=== PATIENT | female | born 1940 | race Caucasian/White ===

== ENCOUNTER 2024-10-10 19:43 | Outpatient (REF) | payer MEDICARE, SELFPAY ==
--- OUTSIDE RECORDS SUMMARY | 2021-03-27 20:00 | XMS_ITS | Continuity of Care Document ---
Author Organization [facility] MOLINA Address [address] [place] [id number] Phone Care Team Providers Care Outreach Liaison Name Role Phone Unavailable Unavailable Unavailable Allergies, Adverse Reactions, Alerts Substance Reaction Status Criticality No Known Allergies Active No Inform ation Medications Medication Instructions Dosage Effective Dates (start - stop) Status Comments ASPIRIN (unknown strength) take 2 tablet by oral route every 6 hours as needed Not Available - Active CHANTIX (unknown strength) take 1 tablet by oral route 2 times every day for 3 days with glass of water after meals Not Available - Active Procedures Procedure Date NO SHOW Refraction Offic/outpt E&m Estab Minor 10 21 Offic/outpt E&m Estab Minor 21 Refraction NO SHOW YAG Cap Discission 2nd Cataract; Laser O CPTR OPHTH DX IMG POST SEGMT CMPTR OPHTH IMG OPTIC NERVE Offic/outpt E&m New Mod-hi 45 1 Offic/outpt E&m New Mod-hi 45 1 CPTR OPHTH DX IMG POST SEGMT CMPTR OPHTH IMG OPTIC NERVE Macular Shield Multi Advance Directives Directive Yes / No Effective Date File Name No Information Encounters Encounter Description Practice Location Reason(s) For Visit Diagnoses Date Provider Providers Copied on Encounter [facility], [address] [place] [address], [id number], tel:[phone] [facility] [address] No Information Mar-2 2 No Information Offic/outpt E&m Estab Minor 10 Luther MOLINA, [address] [place] [address] [place], [place], [id number], tel:[phone] [facility] [address] tech only MR (chief complaint) Other chronic allergic conjunctiviti sPresbyopia Oct-0 1 No Information Luther MOLINA, [address] [place] [address] [place], [id number], [place] tel:[phone] [facility] [address] No Information Nov- 1 No Information Luther MOLINA, [address] [place] [address] [facility], [place], [place], [id number], tel:[phone] [facility] Jaun MOLINA Yag cap evaluation (chief complaint) Other secondary cataract, bilateralBila teral nonexudative age-related macular degeneration, intermediate dry stage Nov-0 1 Mariajose Sims. [address] [place] [address], [id number], [place]. tel:[phone] Offic/outpt E&m New Mod-hi 45 Luther MOLINA, [address] [place] [address] [place], [id number], [place] tel:[phone] [facility] Jaun MOLINA blurry vision (chief complaint) Other secondary cataract, bilateralBila teral nonexudative age-related macular degeneration, intermediate dry stage 1 No Information Referring Provider: [facility], [address] [place], [address]. tel:[phone] [facility] Jaun MOLINA, [address] [place] [address] [place], [id number], [place] tel:[phone] [facility] No Information 1 X Y. [address] [place] [address], [id number], . tel:[phone] Referring Provider: [facility], [address] [facility], [place], [address]. tel:[phone] Family History Family Member Type Diagnosis Age At Onset No Information Payers Payer name Insurance type Covered alliance party ID Authoriza tirj(s) [facility] Dual Comp lencho [id number] [facility]ly [facility] [id number] Social History Type Description Quantity Date Captured Comments Sex Female Smoking Status No Information Chief Complaint And Reason For Visit No Information Reason For Referral Reason For Referral No Information History Of Present Illness Encounter Date Complaint History Of Prese nt Illness tech only MR The 80 year old female presents for evaluation of tech only MR in the right eye and left eye. Patient is here for a tech only MR. Patient notes she needs new glasses. Patient wanted to see the doctor because she has fluid coming out of her eyes since her last visit. 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 Wilson for a Yag cap evaluation in the right eye and left eye. Patient reports having visual blur. Currently taking AREDS 2 formula vitamins. blurry vision The 80 year old female presents for evaluation of blurry vision in the right eye and left eye. It occurs daily. The onset was gradual. The symptom is constant. The condition is mild. The condition is described as blurring. In addition, the condition is associated with daily activity and chores. Patient states that she has a hard time seeing things in the distance and up close. She states that she was ref over for annual exam. Functional Status Date Functional Assessmen t No Information Instructions Date Instruction Additional Infor mation RTC 03/2021 as sched with MANAV Rel ated to Other chronic allergic conjunctivitis Impression/Plan Related to Other chronic allergic conjunctivitis Impression/Plan Related to Presb yopia Impression/Plan Related to Other secondary cataract, bilateral Impression/Plan Related to Bilat eral nonexudative age-related macular degeneration, intermediate dry stage RTC: Related to Other secondary cataract, bilateral Impression/Plan Related to Other secondary cataract, bilateral Impression/Plan Related to Bilat eral nonexudative age-related macular degeneration, early dry stage Impression/Plan Related to Bilat eral nonexudative age-related macular degeneration, intermediate dry stage Assessments Type Assessment Date No Information Patient Care Teams Name Effective Dates (start - stop) Status Members No Information
--- OUTSIDE RECORDS SUMMARY | 2024-10-10 19:49 | XMS_ITS | Clinical Summary ---
Author Organization [facility] Address [facility] [place] [address] Care Team Providers Care Watermelon Inspector Name Role Phone Unavailable Primary Care Provider Unavailabl e Encounters Date Type Department Care Team Description 09/19/2024 Progress Note [facility] Detention [address] [place] [address] Talita Keenan MD from Last 3 Months Social History Tobacco Use Types Packs/Day Years Used Date Smoking Tobacco: Never Assessed Comments Unknown Sex and Gender Information Value Date Recorded Sex Assigned at Not on file Legal Sex Female 2:19 PM EDT Gender Identity Not on file Sexual Orientation Not on file Plan of Treatment Not on file Insurance MEDICARE
--- OUTSIDE RECORDS SUMMARY | 2024-10-10 19:50 | XMS_ITS | Clinical Summary ---
Author Organization [facility] Address [address], [address] [place] [address] Care Team Providers Care Arc Cutter Plasma Arc Name Role Phone Connie Restrepo SAMPLE CASE PORTER - CHEMICAL RESEARCH WORKER Primary Care P rovider Allergies Active Allergy Reactions Criticality Noted Date Comments Environmental/Season al Other (See Comments) 07/29/2024 Sneezing,watery eyes Medications albuterol (PROVENTIL) (2.5 MG/3ML) 0.083% nebulizer solution Take 3 mLs by nebulization every 6 hours as needed for Wheezing 120 each 025 Active Additional Information Patient taking differently:2.5 mg NebulizationEVERY 4 HOURS PRN, Wheezing, Shortness of Breath, Reported on 09/12/2024 guaiFENesin (MUCINEX) 600 MG extended release tablet Take 2 tablets by mouth 2 times daily 360 tablet 025 2024 Active Additional Information Patient taking differently:1,200 mg Oral2 TIMES DAILY PRN, Congestion, Reported on 09/12/2024 ipratropium 0.5 mg-albuterol 2.5 mg (DUONEB) 0.5-2.5 (3) MG/3ML SOLN nebulizer solution Inhale 3 mLs into the lungs every 6 hours as needed for Shortness of Breath 360 mL 025 Active levothyroxine (SYNTHROID) 88 MCG tablet Take 1 tablet by mouth Daily 90 tablet 025 2024 Active metoprolol tartrate (LOPRESSOR) 25 MG tablet Take 0.5 tablets by mouth 2 times daily 90 tablet 025 2024 Active Additional Information Patient taking differently:12.5 mg OralDAILY, Reported on 09/12/2024 mirtazapine (REMERON) 7.5 MG tablet Take 1 tablet by mouth nightly 90 tablet Active traZODone (DESYREL) 50 MG tablet Take 1 tablet by mouth nightly as needed for Sleep 90 tablet Active folic acid (FOLVITE) 1 MG tablet Take 1 tablet by mouth daily Active LORazepam (ATIVAN) 0.5 MG tablet Take 0.5 tablets by mouth every 6 hours as needed for Anxiety (restlessness). Active Albuterol-Cypress esonide (AIRSUPRA) 90-80 MCG/ACT AERO Inhale 2 puffs into the lungs every 4 hours as needed (SOB/wheezing) Active polyethylene glycol (MIRALAX) 17 g PACK packet Take 17 g by mouth daily Active OXYGEN Inhale 4 L/min into the lungs continuous Active sennosides-do cusate sodium (SENOKOT-S) 8.6-50 MG tablet Take 2 tablets by mouth daily Active sennosides-do cusate sodium (SENOKOT-S) 8.6-50 MG tablet Take 2 tablets by mouth daily as needed for Constipation Active acetaminophen (TYLENOL) 325 MG tablet Take 2 tablets by mouth every 8 hours as needed for Pain or Fever Active warfarin (COUMADIN) 1 MG tablet Take 1 tablet by mouth See Admin Instructions 2 tabs 5 days a week (Sunday) 3 tabs 2 days a week (Sunday and Sunday) Active potassium chloride (MICRO-K) 10 MEQ extended release capsule Take 1 capsule by mouth 2 times daily 60 capsule 025 2024 Active furosemide (LASIX) 40 MG tablet Take 1 tablet by mouth in the morning and 1 tablet in the evening. 60 tablet 025 2024 Active Multiple Vitamin (DAILY TAMIA) TABS Take 400 mcg by mouth daily Without Vitamin K 2024 Discontinued(L IST CLEANUP) vitamin D (CHOLECALCIFE ROL) 25 MCG (1000 UT) TABS tablet Take 1 tablet by mouth daily 2024 Discontinued(L IST CLEANUP) vitamin B-12 (CYANOCOBALAM IN) 1000 MCG tablet Take 1 tablet by mouth daily 2024 Discontinued(L IST CLEANUP) docusate sodium (COLACE) 100 MG capsule Take 1 capsule by mouth daily 90 capsule 025 2024 Discontinued(L IST CLEANUP) furosemide (LASIX) 20 MG tablet Take 1 tablet by mouth daily 90 tablet 025 2024 Discontinued(S top Taking at Discharge) ferrous gluconate (IRON 27) 240 (27 Fe) MG tablet Take 1 tablet by mouth every morning (before breakfast) 2024 Discontinued(L IST CLEANUP) predniSONE (DELTASONE) 20 MG tablet Take 1 tablet by mouth 2 times daily 2024 Discontinued potassium chloride (MICRO-K) 10 MEQ extended release capsule Take 1 capsule by mouth 2 times daily 2024 Discontinued furosemide (LASIX) 20 MG tablet Take 1 tablet by mouth in the morning and 1 tablet in the evening. 60 tablet 3 025 2024 Discontinued(S top Taking at Discharge) doxycycline hyclate (VIBRAMYCIN) 100 MG capsule Take 1 capsule by mouth every 12 hours for 6 days 12 capsule 025 2024 Discontinued(S top Taking at Discharge) predniSONE (DELTASONE) 20 MG tablet Take 1 tablet by mouth 2 times daily for 10 days 20 tablet 025 2024 doxycycline hyclate (VIBRAMYCIN) 100 MG capsule Take 1 capsule by mouth every 12 hours for 7 doses 7 capsule 025 2024 Active Problems Problem Noted Date Diagnosed Date Failure to thrive in adult 09/12/2024 Hospice care 08/22/2024 Pneumonia due to organism 08/17/2024 Encounters Date Type Department Care Team Description 09/12/2024 6:37 AM EDT - 09/18/2024 2:00 PM EDT Hospital Encounter [facility] Med Surg Unit [address] [place] [address] Jose Bean DO Kessler, Richard T, MD Kaplan, Mark, MD General weakness (Primary Dx); Fall, initial encounter Discharge Disposition: Hospice/Medical Facility 09/12/2024 Travel 09/11/2024 1:31 PM EDT - 09/11/2024 11:59 PM EDT Hospital Encounter [facility] [address] [place] [address] Discharge Disposition: Home or Self Care 09/11/2024 Orders Only [facility] [address] [place] [phone] Summer Rudd MD 09/03/2024 10:22 AM EDT - 09/03/2024 11:59 PM EDT Hospital Encounter [facility] [address] [place] [phone] Discharge Disposition: Home or Self Care 09/03/2024 Orders Only [facility] [address] [place] [phone] Summer Rudd MD 08/25/2024 Telephone [facility] [place] [address] Connie Restrepo APRN - [facility] Outreach (AWV) 08/22/2024 Orders Only [facility] [address] [place] [phone] Summer Rudd MD 08/22/2024 Orders Only [facility] [address] [place] [phone] Summer Rudd MD 08/16/2024 9:57 PM EDT - 08/19/2024 1:43 PM EDT [facility] [address] [place] [address] Mariano Dumont DO Kaplan, Mark, MD Massouh, Rafik, MD Respiratory distress (Primary Dx); 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 lung (HCC); Pneumonia of left lower lobe due to infectious organism; Septicemia (HCC); Lactic acidosis; Acute anemia Discharge Disposition: Hospice/Home 08/16/2024 Travel 08/14/2024 Telephone [facility] [address] [place] [phone] Heber Newman APRN - CNP update 08/12/2024 Telephone [facility] Phys [id number] [place] [phone] Heber Newman APRN - CNP update on DME & pulmonology 08/12/2024 Orders Only [facility] [id number] [place] [phone] Heber Newman APRN - CNP 08/11/2024 9:00 AM EDT Office Visit [facility] Phys [address] [facility] [address] [address] [place] [address] Heber Newman APRN Stiven MONTES Chronic obstructive pulmonary disease, unspecified COPD type (HCC) (Primary Dx); Decreased mobility and endurance; Cachexia; Advanced care planning/counseling discussion; Goals of care, counseling/discussi on; Palliative care encounter; Encounter to establish care 08/11/2024 Orders Only [facility] [address] [place] [phone] Heber Newman APRN - CNP 08/07/2024 Abstract [facility] [address] [place] [phone] Connie Restrepo, SAMPLE CASE PORTER - CHEMICAL RESEARCH WORKER 08/07/2024 Abstract [facility] [address] [place] [phone] Connie Restrepo, SAMPLE CASE PORTER - CHEMICAL RESEARCH WORKER 08/05/2024 Abstract [facility] Care [address] [place] [phone] Connie Restrepo, SAMPLE CASE PORTER - CHEMICAL RESEARCH WORKER 08/04/2024 Refill [facility] [address] [place] [phone] Connie Restrepo, SAMPLE CASE PORTER - CHEMICAL RESEARCH WORKER Medication Refill 08/04/2024 Telephone [facility] [address] [place] [phone] Connie Restrepo, SAMPLE CASE PORTER - CHEMICAL RESEARCH WORKER Med Refill Clerical 08/04/[address] [address] Connie Restrepo, SAMPLE CASE PORTER - CHEMICAL RESEARCH WORKER 08/04/[address] [phone] Connie Restrepo, SAMPLE CASE PORTER - CHEMICAL RESEARCH WORKER Medication Refill 08/04/[address] [phone] Connie Restrepo, SAMPLE CASE PORTER - CHEMICAL RESEARCH WORKER Medication Refill 07/31/2024 11:15 AM EDT Clinical Support [address] [phone] Chronic obstructive pulmonary disease, unspecified COPD type (HCC) (Primary Dx); Oxygen dependent 07/31/[address] [phone] Connie Restrepo, SAMPLE CASE PORTER - CHEMICAL RESEARCH WORKER other 07/31/[address] [address] Connie Restrepo, SAMPLE CASE PORTER - CHEMICAL RESEARCH WORKER 07/30/[address] [address] Connie Restrepo, SAMPLE CASE PORTER - CHEMICAL RESEARCH WORKER oxygen 07/29/2024 10:45 AM EDT Office Visit [address] [phone] Connie Restrepo, SAMPLE CASE PORTER - CHEMICAL RESEARCH WORKER Chronic obstructive pulmonary disease, unspecified COPD type (HCC) (Primary Dx); Oxygen dependent; Anticoagulated on Coumadin from Last 3 Months Family History Medical History Relation Name Comments COPD Brother Leukemia Brother Liver Cancer Father Lung Cancer Father Heart Disease Mother Leukemia Paternal Grandfather Heart Disease Sister Relation Name Status Comments Brother Father Maternal Grandfather Maternal Grandmother Mother Paternal Grandfather Paternal Grandmother Sister Alive Social History Tobacco Use Types Packs/Day Years Used Date Smoking Tobacco: Former Cigarettes 1.5 63.2 0 02/05/1959 - 05/06/2022 Smokeless Tobacco: Never Tobacco Cessation:Counseling Given: Not Answered Alcohol Use Standard Drinks/Week Comments Never 0 (1 standard drink = 0.6 oz pur e alcohol) [facility] Utilities Answer Date Recorded In the past 12 months has th e [place], gas, oil, or water [employer] threatened to shut off services in your home? No 09/12/2024 AUDIT-C Answer Date Recorded Q1: How often do you have a drink containing alcohol? Never 09/12/2024 Q2: How many drinks containi ng alcohol do you have on a typical day when you are drinking? Patient does not drink Q3: How often do you have si x or more drinks on one occasion? Never 09/12/2024 PHQ-2 Answer Date Recorded PHQ-9 Total Score 0 07/29/2024 Hunger Vital Sign Answer Date Recorded Within the past 12 months, y ou worried that your food would run out before you got the money to buy more. Never true 09/13/19 25 Within the past 12 months, t he food you bought just didn't last and you didn't have money to get more. Never true 09/12/2024 PRAPARE - Transportation Answer Date Re corded In the past 12 months, has l ack of transportation kept you from medical appointments or from getting medications? No 09/2024 In the past 12 months, has l ack of transportation kept you from meetings, work, or from getting things needed for daily living? No 09/12/2024 Housing Stability Vital Sign Answer Chidi e Recorded In the last 12 months, was t here a time when you were not able to pay the mortgage or rent on time? No 09/12/2024 In the past 12 months, how m any times have you moved where you were living? 1 09/12/2024 At any time in the past 12 [facility], were you homeless or living in a assisted (including now)? No 09/12/2024 Food Insecurity Answer Date Recorded Within the past 12 months, y ou worried that your food would run out before you got the money to buy more. 1 09/12/2024 Within the past 12 months, t he food you bought just didn't last and you didn't have money to get more. 1 09/12/2024 Interpersonal Safety Domain Source: IP Abuse Scr eening Answer Date Recorded Physical abuse Denies 09/12/2024 Verbal abuse Denies 09/12/2024 Emotional abuse Denies 09/12/2024 Financial abuse Denies 09/12/2024 Sexual abuse Denies 09/12/2024 Comments No Sex and Gender Information Value Date Recorded Sex Assigned at Not on file Legal Sex Female 10:35 AM EDT Gender Identity Not on file Sexual Orientation Not on file Last Filed Vital Signs Vital Sign Reading Time Taken Comments Blood Pressure 150/47 09/18/2024 5:39 AM EDT Pulse 76 09/18/2024 5:39 AM EDT Temperature 36.3 C (97.3 F) 09/18/2024 5:39 AM EDT Respiratory Rate 19 09/18/2024 5:39 AM EDT Oxygen Saturation 98% 09/18/2024 8:41 AM EDT Inhaled Oxygen Concentration - - Weight 40.8 kg (90 lb) 09/12/2024 6:39 AM EDT Height 166 cm (5' 5.35 ) 09/12/2024 6:39 AM EDT Body Mass Index 14.81 09/12/2024 6:39 AM EDT Plan of Treatment Health Maintenance Due Date Last Done Comments Depression Screen Discontinued 07/29/2024, 07/29/2024 Procedures Procedure Name Priority Date/Time Associated Diagnosis Comments PROTIME-INR Routine 09/18/2024 5:39 AM EDT BRAIN NATRIURETIC PEPTIDE Routine 09/17/2024 5:19 AM EDT BASIC METABOLIC PANEL Routine 09/17/2024 5:19 AM EDT CBC WITH AUTO DIFFERENTIAL Routine 09/17/2024 5:19 AM EDT PROTIME-INR Routine 09/17/2024 5:19 AM EDT PROTIME-INR Routine 09/16/2024 5:46 AM EDT PROTIME-INR Routine 09/15/2024 6:13 AM EDT PROTIME-INR Routine 09/14/2024 6:17 AM EDT PROTIME-INR Routine 09/13/2024 6:14 AM EDT PULSE OXIMETRY SPOT CHECK Routine 09/12/2024 11:00 AM EDT MICROSCOPIC URINALYSIS STAT 7:58 AM EDT URINALYSIS STAT 09/12/2024 7:58 AM EDT XR TIBIA FIBULA RIGHT (2 VIEWS) STAT 09/12/2024 7:42 AM EDT XR FEMUR RIGHT (MIN 2 VIEWS) STAT 09/12/2024 7:42 AM EDT XR ELBOW RIGHT (MIN 3 VIEWS) STAT 09/12/2024 7:42 AM EDT XR CHEST PORTABLE STAT 09/12/2024 7:4 2 AM EDT TROPONIN STAT 09/12/2024 7:23 AM EDT PROTIME-INR STAT 09/12/2024 7:23 AM EDT CK STAT 09/12/2024 7:23 AM EDT LACTIC ACID STAT 09/12/2024 7:23 AM EDT COMPREHENSIVE METABOLIC PANEL STAT 09/12/2024 7:23 AM EDT CBC WITH AUTO DIFFERENTIAL STAT 09/12/2024 7:23 AM EDT EKG 12-LEAD STAT 09/12/2024 7:14 AM EDT PROTIME-INR Routine 09/11/2024 1:36 PM EDT PROTIME-INR Routine 09/03/2024 12:37 PM EDT PROTIME-INR Routine 08/22/2024 5:41 PM EDT SPECIMEN REJECTION Routine 08/22/2024 11 :27 AM EDT BASIC METABOLIC PANEL Routine 08/18/2024 6:51 AM EDT CBC WITH AUTO DIFFERENTIAL Routine 08/18/2024 6:51 AM EDT PROTIME-INR Routine 08/18/2024 6:51 AM EDT LACTIC ACID Routine 08/18/2024 6:51 AM EDT EKG RHYTHM STRIP Routine 08/18/2024 3:05 AM EDT HEMOGLOBIN AND HEMATOCRIT Routine 08/17/2024 10:39 PM EDT PROTIME-INR STAT 08/17/2024 12:20 PM EDT BLOOD OCCULT STOOL SCREEN #1 Routine 08/17/2024 12:16 PM EDT ANTIBODY IDENTIFICATION Routine 08/18/19 12:10 PM EDT PREPARE RBC (CROSSMATCH) Routine 08/17/2024 12:10 PM EDT TYPE AND SCREEN Routine 08/17/2024 12:10 PM EDT LACTIC ACID Routine 08/17/2024 9:40 AM EDT BRAIN NATRIURETIC PEPTIDE Routine 08/17/2024 9:40 AM EDT BASIC METABOLIC PANEL Routine 08/17/2024 9:40 AM EDT CBC WITH AUTO DIFFERENTIAL Routine 08/17/2024 9:40 AM EDT EKG RHYTHM STRIP Routine 08/17/2024 5:04 AM EDT CULTURE, URINE STAT 08/17/2024 2:58 AM EDT MICROSCOPIC URINALYSIS STAT 2:49 AM EDT URINALYSIS WITH REFLEX TO CULTURE STAT 08/17/2024 2:49 AM EDT LACTATE, SEPSIS STAT 08/17/2024 12:33 AM EDT CULTURE, BLOOD 2 STAT 08/17/2024 12:3 3 AM EDT CULTURE, BLOOD 1 STAT 08/17/2024 12:3 3 AM EDT POCT VENOUS Routine 08/17/2024 12:31 AM EDT BRAIN NATRIURETIC PEPTIDE STAT 08/16/2024 11:59 PM EDT CTA CHEST W WO CONTRAST STAT 08/17/19 11:26 PM EDT XR CHEST PORTABLE STAT 08/16/2024 11: 16 PM EDT PROCALCITONIN STAT 08/16/2024 10:38 PM EDT MAGNESIUM STAT 08/16/2024 10:38 PM EDT LACTATE, SEPSIS STAT 08/16/2024 10:38 PM EDT COMPREHENSIVE METABOLIC PANEL STAT 08/16/2024 10:38 PM EDT D-DIMER, QUANTITATIVE STAT 08/16/2024 10:38 PM EDT CBC WITH AUTO DIFFERENTIAL STAT 08/16/2024 10:38 PM EDT EKG 12-LEAD STAT 08/16/2024 10:27 PM EDT DME ORDER FOR (SPECIFY) OP Routine 08/12/2024 12:29 PM EDT AMB EXTERNAL REFERRAL TO PRIMARY CARE Routine 08/11/2024 12:00 PM EDT DME ORDER FOR (SPECIFY) OP Routine 08/11/2024 11:40 AM EDT from Last 3 Months Results * (ABNORMAL) Protime-INR (09/18/2024 5:39 AM EDT) Only the most recent of12 resultswithin the time period is included. Protime 25.1(H) 12.3 - 14.9 sec 09/18/2024 4:58 AM EDT [facility] INR 2.2 09/18/2024 4:58 AM EDT [facility] Blood BLOOD SPECIMEN / Unknown 09/18/2024 5:39 AM EDT 09/18/2024 5:39 AM EDT us Geovany Mora MD HEMATOLOGY ORDERABLES Final Resu lt [facility] [address] [place] [id number] [phone] * (ABNORMAL) CBC with Auto Differential (09/17/2024 5:19 AM EDT) Only the most recent of5 resultswithin the time period is included. WBC 6.8 4.0 - 10.0 K/uL 09/17/2024 5:22 AM EDT [facility] RBC 3.63(L) 3.93 - 5.22 M/uL 09/17/2024 5:22 AM EDT [facility] Hemoglobin 9.7(L) 11.2 - 15.7 g/dL 09/17/2024 5:22 AM [facility] Hematocrit 33.0(L) 37.0 - 47.0 % 09/17/2024 5:22 AM [facility] MCV 90.9 79.4 - 94.8 fL 09/17/2024 5:22 AM [facility] MCH 26.7 25.6 - 32.2 pg 09/17/2024 5:22 AM [facility] MCHC 29.4(L) 32.2 - 35.5 % 09/17/2024 5:22 AM [facility] RDW 17.9(H) 11.7 - 14.4 % 09/17/2024 5:22 AM [facility] Platelets 219 182 - 369 K/uL 09/17/2024 5:22 AM [facility] Neutrophils % 85.7(H) 34.0 - 71.1 % 09/17/2024 5:22 AM [facility] Immature Granulocytes % 6.7 % 09/17/2024 5:22 AM [facility] Lymphocytes % 2.9 % 09/17/2024 5:22 AM [facility] Monocytes % 4.3(L) 4.7 - 12.5 % 09/17/2024 5:22 AM [facility] Eosinophils % 0.0(L) 0.7 - 5.8 % 09/17/2024 5:22 AM [facility] Basophils % 0.4 0.1 - 1.2 % 09/17/2024 5:22 AM [facility] Neutrophils Absolute 5.8 1.6 - 6.1 K/uL 09/17/2024 5:22 AM [facility] Immature Granulocytes # 0.5 K/uL 09/17/2024 5:22 AM [facility] Lymphocytes Absolute 0.2(L) 1.2 - 3.7 K/uL 09/17/2024 5:22 AM [facility] Monocytes Absolute 0.3 0.2 - 0.9 K/uL 09/17/2024 5:22 AM EDT [facility] Eosinophils Absolute 0.0 0.0 - 0.4 K/uL 09/17/2024 5:22 AM EDT [facility] Basophils Absolute 0.0 0.0 - 0.1 K/uL 09/17/2024 5:22 AM EDT [facility] 09/17/2024 5:19 AM EDT 09/17/2024 5:19 AM EDT us Geovany Mora MD HEMATOLOGY ORDERABLES Final Resu lt Performing Organization Address [facility] Co de Phone Number [facility] [address] [place], [place] [id number] [phone] * Brain Natriuretic Peptide (09/17/2024 5:19 AM EDT) Only the most recent of3 resultswithin the time period is included. NT Pro-BNP 9,576 pg/mL 09/17/2024 5:45 AM EDT [facility] Comment: NT-pro BNP ACUTE Interpretive Guidelines: Age Cutoff for Heart Failure Less than 50 yrs 450 pg/mL 50-75 yrs 900 pg/mL Greater than 75 yrs 1800 pg/mL NT-pro BNP NON-ACUTE Interpretive Guidelines: Age Reference Range Less than 74 yrs 0-125 pg/mL Greater than 74 yrs 0-450 pg/mL Other possible causes of an elevated NT-proBNP include: cardiac ischemia, acute coronary syndrome, COPD, pneumonia, atrial fibrillation, pulmonary emboli, pulmonary hypertension, pericarditis Reference: Kiarra Arellano et al. NT-proBNP testing for diagnosis and short-term prognosis in acute destabilized HF: an international pooled analysis of 1256 patients. Heart Journal. 2006;27:330-337 Blood BLOOD SPECIMEN / Unknown 09/17/2024 5:19 AM EDT 09/17/2024 5:19 AM EDT us Geovany Mora MD CHEMISTRY ORDERABLES Final Resul t Performing Organization Address City/[facility]/ZIP Co de Phone Number [facility] [address] [place] [id number], [facility] [phone] * (ABNORMAL) Basic Metabolic Panel (09/17/2024 5:19 AM EDT) Only the most recent of3 resultswithin the time period is included. Sodium 142 135 - 144 mEq/L 09/17/2024 5:37 AM [facility] Potassium 5.0(H) 3.4 - 4.9 mEq/L 09/17/2024 5:37 AM [facility] Chloride 104 95 - 107 mEq/L 09/17/2024 5:37 AM [facility] CO2 30 20 - 31 mEq/L 09/17/2024 5:47 AM [facility] Anion Gap 8(L) 9 - 15 mEq/L 09/17/2024 5:47 AM [facility] Glucose 142(H) 70 - 99 mg/dL 09/17/2024 5:47 AM [facility] BUN 44(H) 8 - 23 mg/dL 09/17/2024 5:46 AM [facility] Creatinine 0.90 0.50 - 0.90 mg/dL 09/17/2024 5:47 AM [facility] Est, Glomichelle Filt Rate 63.6 >60 09/17/2024 5:47 AM [facility] Comment: Pediatric calculator link https://www.kidney.org/professionals/kdoqi/gfr_calculatorped Effective Nov 07, 2021 These results are not intended for use in patients <18 years of age. eGFR results are calculated without a race factor using the 2020 CKD-EPI equation. Careful clinical correlation is recommended, particularly when comparing to results calculated using previous equations. The CKD-EPI equation is less accurate in patients with extremes of muscle mass, extra-renal metabolism of creatinine, excessive creatinine ingestion, or following therapy that affects renal tubular secretion. Calcium 9.4 8.5 - 9.9 mg/dL 09/17/2024 5:47 AM [facility] 09/17/2024 5:19 AM EDT 09/17/2024 5:19 AM EDT Geovany Mora MD CHEMISTRY ORDERABLES Final Resul t Performing Organization Address [facility]/ZIP Co de Phone Number [facility] [address] [place], [place] [address] [phone] * Microscopic Urinalysis (09/12/2024 7:58 AM EDT) Only the most recent of2 resultswithin the time period is included. WBC, UA 0-2 0 - 5 /HPF 09/12/2024 7:57 AM EDT [facility] RBC, UA 0-2 0 - 2 /HPF 09/12/2024 7:57 AM EDT [facility] Epithelial Cells, UA 0-2 /HPF 09/12/2024 7:57 AM EDT [facility] Bacteria, UA Negative Negative /HPF 09/12/2024 7:57 AM EDT [facility] 09/12/2024 7:58 AM EDT 09/12/2024 7:58 AM EDT Jose Bean DO URINE ORDERABLES Final Result Performing Organization Address [facility] Co de Phone Number [facility] [address] [place], [place] [address] [phone] * (ABNORMAL) Urinalysis (09/12/2024 7:58 AM EDT) Color, UA Yellow Straw/Yellow 09/12/2024 7:53 AM EDT [facility] Clarity, UA Clear Clear 09/12/2024 7:53 AM EDT [facility] Glucose, Ur Negative Negative mg/dL 09/12/2024 7:53 AM EDT [facility] Bilirubin, Urine Negative Negative 09/12/2024 7:53 AM EDT [facility] Ketones, Urine Negative Negative mg/dL 09/12/2024 7:53 AM EDT [facility] Specific [place], UA 1.020 1.005 - 1.030 09/12/2024 7:53 AM EDT [facility] [facility] Blood, Urine Negative Negative 09/12/2024 7:53 AM EDT [facility] pH, Urine 6.0 5.0 - 9.0 09/12/2024 7:53 AM EDT [facility] Protein, UA 100(A) Negative mg/dL 09/12/2024 7:53 AM EDT [facility] Urobilinogen, Urine 0.2 <2.0 E.U./dL 09/12/2024 7:53 AM EDT [facility] Nitrite, Urine Negative Negative 09/12/2024 7:53 AM EDT [facility] Leukocyte Esterase, Urine Negative Negative 09/12/2024 7:53 AM EDT [facility] Urine URINE SPECIMEN / Unknown 09/12/2024 7:58 AM EDT 09/12/2024 7:58 AM EDT Jose Bean DO URINE ORDERABLES Final Result [facility] [address] [place] [address], [facility] [phone] * XR CHEST PORTABLE (09/12/2024 7:42 AM EDT) Only the most recent of2 resultswithin the time period is included. Anatomical Region Laterality Modality Chest Computed Radiogr aphy 09/12/2024 8:32 AM EDT Impressions 09/12/2024 8:35 AM EDT Infiltrates consolidation with bilateral pleural effusions. Soft tissue density with cavitary component the superomedial aspect right upper lobe. Please see CT scan chest August 16, 2024 for additional details Narrative 09/12/2024 8:35 AM EDT EXAMINATION: ONE XRAY VIEW OF THE CHEST 09/12/2024 7:28 am COMPARISON: August 16, 2024 2305 hours. HISTORY: ORDERING SYSTEM PROVIDED HISTORY: fall, cough dyspnea TECHNOLOGIST PROVIDED HISTORY: Reason for exam:->fall, cough dyspnea What reading provider will be dictating this exam?->CRC FINDINGS: Single view of the chest is submitted. There are multiple median sternotomy wires overlying the cardiac silhouette. The cardiac silhouette is of normal size configuration. Pulmonary vasculature is congested with some increased interstitial markings that could suggest component of CHF. Right-sided trachea. There is a soft tissue density with a cavitary component within the superomedial aspect of the right upper lobe. Point vascular appears congested increased interstitial markings that could suggest bone CHF. Correlate clinically. Bibasilar No there are bibasilar areas of patchy to close infiltrate consolidation both bases with small bilateral pleural effusions left greater than right. No effusion No pneumothoraces. Procedure Note Phil Jesus MD - 09/12/2024 EXAMINATION: ONE XRAY VIEW OF THE CHEST 09/12/2024 7:28 am COMPARISON: August 16, 2024 2305 hours. HISTORY: ORDERING SYSTEM PROVIDED HISTORY: fall, cough dyspnea TECHNOLOGIST PROVIDED HISTORY: Reason for exam:->fall, cough dyspnea What reading provider will be dictating this exam?->CRC FINDINGS: Single view of the chest is submitted. There are multiple median sternotomy wires overlying the cardiacsilhouette. The cardiac silhouette is of normal size configuration. Pulmonary vasculature is congested with some increased interstitialmarkings that could suggest component of CHF. Right-sided trachea. There is a soft tissue density with a cavitary component within the superomedial aspect of the right upper lobe. Point vascular appears congested increased interstitial markings that could suggest bone CHF. Correlate clinically. Bibasilar No there are bibasilar areas of patchy to close infiltrate consolidationboth bases with small bilateral pleural effusions left greater than right. No effusion No pneumothoraces. IMPRESSION: Infiltrates consolidation with bilateral pleural effusions. Soft tissue density with cavitary component the superomedial aspectright upper lobe. Please see CT scan chest August 16, 2024 for additionaldetails us Jose Bean DO IM DIAGNOSTIC IMAGING ORDERABLES Final Result * XR TIBIA FIBULA RIGHT (2 VIEWS) (09/12/2024 7:42 AM EDT) Anatomical Region Laterality Modality Leg, Knee, Ankle Computed Radiog emilie 09/12/2024 9:09 AM EDT Impressions 09/12/2024 9:12 AM EDT Old healed fracture of the proximal 3rd of the right tibia. Pain persists consider repeat x-ray in 7-10 days. Narrative 09/12/2024 9:12 AM EDT EXAMINATION: XRAY VIEWS OF THE RIGHT TIBIA AND FIBULA 09/12/2024 7:28 am COMPARISON: None. HISTORY: ORDERING SYSTEM PROVIDED HISTORY: fall, injury TECHNOLOGIST PROVIDED HISTORY: Reason for exam:->fall, injury What reading provider will be dictating this exam?->CRC FINDINGS: Two views right tibia submitted. There is an area of old healed fracture within the proximal 3rd of the right tibia. There is a bony exostosis within the anterior middle 3rd of the right tibia. No focal bony abnormalities. No acute fracture. Procedure Note Phil Jesus MD - 09/12/2024 EXAMINATION: XRAY VIEWS OF THE RIGHT TIBIA AND FIBULA 09/12/2024 7:28 am COMPARISON: None. HISTORY: ORDERING SYSTEM PROVIDED HISTORY: fall, injury TECHNOLOGIST PROVIDED HISTORY: Reason for exam:->fall, injury What reading provider will be dictating this exam?->CRC FINDINGS: Two views right tibia submitted. There is an area of old healed fracture within the proximal 3rd of theright tibia. There is a bony exostosis within the anterior middle 3rd of the righttibia. No focal bony abnormalities. No acute fracture. IMPRESSION: Old healed fracture of the proximal 3rd of the right tibia. Painpersists consider repeat x-ray in 7-[address] [facility] DIAGNOSTIC IMAGING ORDERABLES Final Result * XR FEMUR RIGHT (MIN 2 VIEWS) (09/12/2024 7:42 AM EDT) Anatomical Region Laterality Modality Hip, Thigh, Knee Computed Radiog emilie 09/12/2024 8:36 AM EDT Impressions 09/12/2024 8:37 AM EDT No acute fracture Narrative 09/12/2024 8:37 AM EDT EXAMINATION: XRAY VIEWS OF THE RIGHT FEMUR 09/12/2024 7:28 am COMPARISON: None. HISTORY: ORDERING SYSTEM PROVIDED HISTORY: fall, injury TECHNOLOGIST PROVIDED HISTORY: Reason for exam:->fall, injury What reading provider will be dictating this exam?->CRC FINDINGS: Insert right femur four views of the right femur submitted. There is a endovascular stent likely within the midportion of the right femoral artery. Correlate with patient history. There is a diffuse generalized osteopenia. There is degenerative change seen of the right hip. No focal bony abnormalities no acute fracture. Procedure Note Phil Jesus MD - 09/12/2024 EXAMINATION: XRAY VIEWS OF THE RIGHT FEMUR 09/12/2024 7:28 am COMPARISON: None. HISTORY: ORDERING SYSTEM PROVIDED HISTORY: fall, injury TECHNOLOGIST PROVIDED HISTORY: Reason for exam:->fall, injury What reading provider will be dictating this exam?->CRC FINDINGS: Insert right femur four views of the right femur submitted. There is a endovascular stent likely within the midportion of the right femoral artery. Correlate with patient history. There is a diffuse generalized osteopenia. There is degenerative change seen of the right hip. No focal bony abnormalities no acute fracture. IMPRESSION: No acute fracture [facility] DIAGNOSTIC IMAGING ORDERABLES Final Result * XR ELBOW RIGHT (MIN 3 VIEWS) (09/12/2024 7:42 AM EDT) Anatomical Region Laterality Modality Elbow, Arm, Forearm Computed Rad iography 09/12/2024 8:35 AM EDT Impressions 09/12/2024 8:36 AM EDT No acute fracture or dislocation of the right elbow. Narrative 09/12/2024 8:36 AM EDT EXAMINATION: THREE XRAY VIEWS OF THE RIGHT ELBOW 09/12/2024 7:28 am COMPARISON: None. HISTORY: ORDERING SYSTEM PROVIDED HISTORY: fall, injury TECHNOLOGIST PROVIDED HISTORY: Reason for exam:->fall, injury What reading provider will be dictating this exam?->CRC FINDINGS: Three views of the right elbow are submitted. No significant effusion. No focal bony abnormality No dislocation. No acute fracture Procedure Note Phil Jesus MD - 09/12/2024 EXAMINATION: THREE XRAY VIEWS OF THE RIGHT ELBOW 09/12/2024 7:28 am COMPARISON: None. HISTORY: ORDERING SYSTEM PROVIDED HISTORY: fall, injury TECHNOLOGIST PROVIDED HISTORY: Reason for exam:->fall, injury What reading provider will be dictating this exam?->CRC FINDINGS: Three views of the right elbow are submitted. No significant effusion. No focal bony abnormality No dislocation. No acute fracture IMPRESSION: No acute fracture or dislocation of the right elbow. [facility] Vikas HENRY IMG DIAGNOSTIC IMAGING ORDERABLES Final Result * (ABNORMAL) Troponin (09/12/2024 7:23 AM EDT) Troponin, High Sensitivity 88(HH) 0 - 19 ng/L 09/12/2024 7:47 AM EDT [facility] Comment: High Sensitivity Troponin values cannot be compared with other Troponin methodologies. Blood BLOOD SPECIMEN / Unknown 09/12/2024 7:23 AM EDT 09/12/2024 7:23 AM EDT Narrative [facility] - 09/12/2024 7:50 AM EDT CALL Garg LOER tel. [phone], Chemistry results called to and read back by michelle garcia, 09/12/2024 07:50, by [facility] CHEMISTRY ORDERABLES Fi nal Result Performing Organization Address [facility] Co de Phone Number [facility] [address] [place] [id number], [facility] [phone] * Lactic Acid (09/12/2024 7:23 AM EDT) Only the most recent of3 resultswithin the time period is included. Lactic Acid 1.5 0.5 - 2.2 mmol/L 09/12/2024 7:49 AM EDT [facility] Blood BLOOD SPECIMEN / Unknown 09/12/2024 7:23 AM EDT 09/12/2024 7:23 AM EDT [facility] CHEMISTRY ORDERABLES Fi nal Result Performing Organization Address [facility] Co de Phone Number [facility] [address] [place], [place] [address] [phone] * CK (09/12/2024 7:23 AM EDT) Total CK 40 0 - 170 U/L 09/12/2024 7:50 AM [facility] Blood BLOOD SPECIMEN / Unknown 09/12/2024 7:23 AM EDT 09/12/2024 7:23 AM EDT Jose Bean DO CHEMISTRY ORDERABLES Fi nal Result [facility] [address] [place] [id number], [facility] [phone] * (ABNORMAL) CMP (09/12/2024 7:23 AM EDT) Only the most recent of2 resultswithin the time period is included. Sodium 142 135 - 144 mEq/L 09/12/2024 7:39 AM [facility] Potassium 4.2 3.4 - 4.9 mEq/L 09/12/2024 7:39 AM [facility] Chloride 104 95 - 107 mEq/L 09/12/2024 7:39 AM [facility] CO2 29 20 - 31 mEq/L 09/12/2024 7:50 AM [facility] Anion Gap 9 9 - 15 mEq/L 09/12/2024 7:50 AM [facility] Glucose 89 70 - 99 mg/dL 09/12/2024 7:51 AM [facility] BUN 39(H) 8 - 23 mg/dL 09/12/2024 7:50 AM [facility] Creatinine 0.80 0.50 - 0.90 mg/dL 09/12/2024 7:50 AM [facility] Est, Glom Filt Rate 73.2 >60 09/12/2024 7:50 AM [facility] Comment: Pediatric calculator link https://www.kidney.org/professionals/kdoqi/gfr_calculatorped Effective Nov 07, 2021 These results are not intended for use in patients <18 years of age. eGFR results are calculated without a race factor using the 2020 CKD-EPI equation. Careful clinical correlation is recommended, particularly when comparing to results calculated using previous equations. The CKD-EPI equation is less accurate in patients with extremes of muscle mass, extra-renal metabolism of creatinine, excessive creatinine ingestion, or following therapy that affects renal tubular secretion. Calcium 9.5 8.5 - 9.9 mg/dL 09/12/2024 7:50 AM EDT [facility] Total Protein 6.9 6.3 - 8.0 g/dL 09/12/2024 7:51 AM T [facility] Albumin 4.0 3.5 - 4.6 g/dL 09/12/2024 7:49 AM T [facility] Total Bilirubin 0.6 0.2 - 0.7 mg/dL 09/12/2024 7:51 AM EDT [facility] Alkaline Phosphatase 175(H) 40 - 130 U/L 09/12/2024 7:49 AM T [facility] ALT 37(H) 0 - 33 U/L 09/12/2024 7:50 AM [facility] AST 23 0 - 35 U/L 09/12/2024 7:50 AM T [facility] Globulin 2.9 2.3 - 3.5 g/dL 09/12/2024 7:51 AM T [facility] Blood BLOOD SPECIMEN / Unknown 09/12/2024 7:23 AM EDT 09/12/2024 7:23 AM EDT Jose Bean DO CHEMISTRY ORDERABLES Fi nal Result [facility] [address] [place] [address], [facility] [phone] * EKG 12 Lead (09/12/2024 7:14 AM EDT) Only the most recent of2 resultswithin the time period is included. Ventricular Rate 75 BPM [facility] MUSE Atrial Rate 47 BPM [facility] QRS Duration 110 ms [facility]USE Q-T Interval 396 ms [facility] MUSE QTc Calculation (Bazett) 442 ms MALZ MUSE R [place] -59 degrees MALZ MUSE T [place] 8 degrees MALZ MUSE Diagnosis Undetermined rhythm Left axis deviation Abnormal ECG When compared with ECG of 16-Aug-2024 22:27, Current undetermined rhythm precludes rhythm comparison, needs review Nonspecific T wave abnormality now evident in Inferior leads Confirmed by BASHIR ZHANG ([id number]) on 09/13/2024 11:04:27 AM MAL[facility] MUSE 09/12/2024 7:14 AM EDT Jose Bean DO ECG ORDERABLES Final R esult AQUILES MURPHY * SPECIMEN REJECTION (08/22/2024 11:27 AM EDT) Rejected Test pt 08/22/2024 11:26 AM EDT [facility] Reason for Rejection see below 08/22/2024 11:26 AM EDT [facility] Comment: Unable to perform testing; specimen mislabeled. To perform testing the specimen will need to be recollected. Mislabel 08/22/2024 11:2 7 AM EDT 08/22/2024 11:27 AM EDT Narrative [facility] - 08/22/2024 11:27 AM EDT ORDER WAS CANCELLED 08/22/2024 11:26, worng - specimen 12-4-42. ORDER WAS CANCELLED 08/22/2024 11:26, worng - specimen 12-4-42. us Summer Rudd MD CHEMISTRY ORDERABLES Final R esult [facility] [address] [place] [address], [facility] [phone] * EKG Rhythm Strip (08/18/2024 3:05 AM EDT) Only the most recent of2 resultswithin the time period is included. 08/18/2024 3:05 AM EDT Narrative [facility] - 08/18/2024 3:19 AM EDT ah us Unknown Provider Result ECG ORDERABLES Final Re sult Performing Organization Address City/[facility]/ZIP Co de Phone Number [facility] [address] [phone] * (ABNORMAL) Hemoglobin and Hematocrit (08/17/2024 10:39 PM EDT) Hemoglobin 7.8(L) 11.2 - 15.7 g/dL 08/17/2024 10:41 PM EDT [facility] Hematocrit 25.0(L) 37.0 - 47.0 % 08/17/2024 10:41 PM EDT [facility] 08/17/2024 10:3 9 PM EDT 08/17/2024 10:39 PM EDT us Geovany Mora MD HEMATOLOGY ORDERABLES Final Resu lt Performing Organization Address [facility] Co de Phone Number [facility] [address] [phone] * (ABNORMAL) BLOOD OCCULT STOOL SCREEN #1 (08/17/2024 12:16 PM EDT) Occult Blood Fecal POSITIVE Normal Range:Negati ve (A) [facility] STOOL SPECIMEN / Unknown 08/17/2024 12:16 PM EDT 08/17/2024 1:40 PM EDT Narrative [facility] - 08/18/2024 7:13 AM EDT ORDER#: [id number] ORDERED BY: GEOVANY MORA SOURCE: Stool COLLECTED: 08/17/24 12:16 ANTIBIOTICS AT NOÉ.: RECEIVED : 08/17/24 13:40 us Geovany Mora MD BODY FLUIDS AND STOOLS ORDERABLE S Final Result [facility] [address] [place] [address], [facility] [phone] [facility] [address] [address], [facility] [phone] * ANTIBODY IDENTIFICATION (08/17/2024 12:10 PM EDT) Antibody ID POS, Anti-D 08/17/2024 5:13 PM EDT [facility] 08/17/2024 12:1 0 PM EDT 08/17/2024 1:42 PM EDT Narrative [facility] - 08/17/2024 5:13 PM EDT This patient is currently demonstrating or has a history of irregular antibodies. Allow extra time for crossmatch compatible blood. Report called : To: John IVERSON Paul_ By: Vane Winter At:_08/17/24 15:03 specimen us Geovany Mora MD BLOOD BANK TEST ORDERABLES Final Result Performing Organization Address City/[facility]/ZIP Co de Phone Number [facility] [address] [place] [address], [facility] [phone] [facility] [address] [place] [address], [facility] [phone] * PREPARE RBC (CROSSMATCH), 1 Units (08/17/2024 12:10 PM EDT) Product Code Blood Bank [id number] [facility] Description Blood Bank Red Blood Cells, Apheresis, Leuko-reduced [facility] Unit Number [id number] [facility] Dispense Status Blood Bank transfused [facility] BLOOD SPECIMEN / Unknown 08/17/2024 12:10 PM EDT 08/17/2024 1:42 PM EDT us Geovany Mora MD BLOOD BANK PRODUCT ORDERABLES Fi nal Result [facility] [address] [place] [address], [facility] [phone] [facility] [address] [place] [address], [facility] [phone] * TYPE AND SCREEN (08/17/2024 12:10 PM EDT) ABO/Rh O NEG 08/17/2024 4:21 PM EDT [facility] Antibody Screen POS 4:21 PM EDT [facility] Blood BLOOD SPECIMEN / Unknown 08/17/2024 12:10 PM EDT 08/17/2024 1:42 PM EDT [facility] - 08/17/2024 4:21 PM EDT This patient is currently demonstrating or has a history of irregular antibodies. Allow extra time for crossmatch compatible blood. Report called : To: John Philippe_ By: Vane Winter At:_08/17/24 15:03 specimen Geovany Mora MD BLOOD BANK TEST ORDERABLES Final Result [facility] [address] [place] [address], [facility] [phone] [facility] [address] [place] [address], [facility] [phone] * (ABNORMAL) Culture, Urine (08/17/2024 2:58 AM EDT) Urine Culture, Routine Performed at [facility] [employer] [address] [place] [address] [phone] ([phone] ([phone]) [facility] Organism Escherichia coli(A) [facility] Urine Culture, Routine 10 to 50,000 CFU/ML Identification by MALDI-TOF [facility] URINE SPECIMEN / Unknown 08/17/2024 2:58 AM EDT 08/17/2024 1:40 PM EDT [facility] - 08/19/2024 11:30 AM EDT ORDER#: [id number] ORDERED BY: MARIANO DUMONT SOURCE: Urine Clean Catch COLLECTED: 08/17/24 02:58 ANTIBIOTICS AT NOÉ.: RECEIVED : 08/17/24 13:40 Organism Antibiotic Method Susceptibility Escherichia coli ampicillin BACTERIAL SUSCEPTIBILITY PANEL BY CATHERINE 8 mcg/mL: Sensitive Escherichia coli cefTRIAXone BACTERIAL SUSCEPTIBILITY PANEL BY CATHERINE <=0.25 mcg/mL: Sensitive Escherichia coli gentamicin BACTERIAL SUSCEPTIBILITY PANEL BY CATHERINE <=1 mcg/mL: Sensitive Escherichia coli levofloxacin BACTERIAL SUSCEPTIBILITY PANEL BY CATHERINE <=0.12 mcg/mL: Sensitive Escherichia coli nitrofurantoin BACTERIAL SUSCEPTIBILITY PANEL BY CATHERINE <=16 mcg/mL: Sensitive Escherichia coli piperacillin-tazobactam BACTERI AL SUSCEPTIBILITY PANEL BY CATHERINE <=4 mcg/mL: Sensitive Escherichia coli trimethoprim-sulfame tho xazole BACTERIAL SUSCEPTIBILITY PANEL BY CATHERINE <=20 mcg/mL: Sensitive Mariano Dumont DO MICROBIOLOGY - GENERAL ORDERABL ES Final Result [facility] [address] [place] [address], [facility] [phone] [facility] [address] [place], [place] [address] [phone] * Urinalysis with Reflex to Culture (08/17/2024 2:49 AM EDT) Color, UA Yellow Straw/Yellow 08/17/2024 2:51 AM EDT [facility] Clarity, UA Clear Clear 08/17/2024 2:51 AM EDT [facility] Glucose, Ur Negative Negative mg/dL 08/17/2024 2:51 AM EDT [facility] Bilirubin, Urine Negative Negative 08/17/2024 2:51 AM EDT [facility] Ketones, Urine Negative Negative mg/dL 08/17/2024 2:51 AM EDT [facility] Specific [place], UA 1.010 1.005 - 1.030 08/17/2024 2:51 AM EDT [facility] Blood, Urine Trace-intact Negative 08/17/2024 2:51 AM EDT [facility] pH, Urine 5.5 5.0 - 9.0 08/17/2024 2:51 AM EDT [facility] Protein, UA Trace Negative mg/dL 08/17/2024 2:51 AM EDT [facility] Urobilinogen, Urine 0.2 <2.0 E.U./dL 08/17/2024 2:51 AM EDT [facility] Nitrite, Urine Positive Negative 08/17/2024 2:51 AM EDT [facility] Leukocyte Esterase, Urine Small Negative 08/17/2024 2:51 AM EDT [facility] Urine Reflex to Culture Yes 08/17/2024 2:58 AM EDT [facility] Urine 08/17/2024 2:49 AM EDT 08/17/2024 2:49 AM EDT us Mariano S Dumont DO URINE ORDERABLES Final Result Performing Organization Address [facility] Co de Phone Number [facility] [address] [place] [address], [facility] [phone] * (ABNORMAL) Lactate, Sepsis (08/17/2024 12:33 AM EDT) Only the most recent of2 resultswithin the time period is included. Lactic Acid, Sepsis 4.6(HH) 0.5 - 1.9 mmol/L 08/17/2024 12:53 AM EDT [facility] BLOOD SPECIMEN / Unknown 08/17/2024 12:33 AM EDT 08/17/2024 12:33 AM EDT Narrative [facility] - 08/17/2024 12:53 AM EDT CALL Garg LOER tel. [phone], Chemistry results called to and read back by kailee kaplan rn, 08/17/2024 00:53, by COOAN us Mariano S Dumont DO CHEMISTRY ORDERABLES Final Resu lt Performing Organization Address [facility]/ZIP Co de Phone Number [facility] [address] [place] [address], [facility] [phone] * Culture, Blood 1 (08/17/2024 12:33 AM EDT) Blood Culture, Routine No growth after 5 days of incubation. [facility] BLOOD SPECIMEN / Unknown 08/17/2024 12:33 AM EDT 08/17/2024 1:39 PM EDT Narrative [facility] - 08/22/2024 2:15 PM EDT ORDER#: [id number] ORDERED BY: MARIANO DUMONT SOURCE: Blood COLLECTED: 08/17/24 00:33 ANTIBIOTICS AT NOÉ.: RECEIVED : 08/17/24 13:39 Mariano Dumont DO MICROBIOLOGY - GENERAL ORDERABL ES Final Result Performing Organization Address [facility] Co de Phone Number [facility] [address] [place] [address], [facility] [phone] [facility] [address] [place] [address], [facility] [phone] * Culture, Blood 2 (08/17/2024 12:33 AM EDT) Culture, Blood 2 No growth after 5 days of incubation. [facility] BLOOD SPECIMEN / Unknown 08/17/2024 12:33 AM EDT 08/17/2024 1:39 PM EDT Narrative [facility] - 08/22/2024 2:15 PM EDT ORDER#: [id number] ORDERED BY: MARIANO DUMONT SOURCE: Blood COLLECTED: 08/17/24 00:33 ANTIBIOTICS AT NOÉ.: RECEIVED : 08/17/24 13:39 Mariano Dumont DO MICROBIOLOGY - GENERAL ORDERABL ES Final Result Performing Organization Address [facility] Co de Phone Number [facility] [address] [place] [address], [facility] [phone] [facility] [address] [place] [address], [facility] [phone] * (ABNORMAL) POCT Venous (08/17/2024 12:31 AM EDT) POC Sodium 140 136 - 145 mEq/L 08/17/2024 12:31 AM [facility] POC Potassium 3.7 3.5 - 5.1 mEq/L 08/17/2024 12:31 AM [facility] POC Chloride 107 99 - 110 mEq/L 08/18/19 12:31 AM [facility] POC Glucose 242(H) 70 - 99 mg/dl 08/17/2024 12:31 AM [facility] POC Creatinine 0.9 0.6 - 1.2 mg/dL 08/17/2024 12:31 AM [facility] EstMaria M Filt Rate 64 >60 08/17/2024 12:31 AM [facility] Comment: Pediatric calculator link https://www.kidney.org/professionals/kdoqi/gfr_calculatorped Effective Nov 07, 2021 These results are not intended for use in patients <18 years of age. eGFR results are calculated without a race factor using the 2020 CKD-EPI equation. Careful clinical correlation is recommended, particularly when comparing to results calculated using previous equations. The CKD-EPI equation is less accurate in patients with extremes of muscle mass, extra-renal metabolism of creatinine, excessive creatinine ingestion, or following therapy that affects renal tubular secretion. Calcium, Ionized 1.10(L) 1.12 - 1.32 mmol/L 08/17/2024 12:31 AM [facility] pH, Arnaldo 7.418 7.320 - 7.420 08/17/2024 12:31 AM [facility] pCO2, Arnaldo 34.4(L) 40.0 - 50.0 mm Hg 08/17/2024 12:31 AM [facility] PO2, Arnadlo 51 Not Established mm Hg 08/17/2024 12:31 AM [facility] HCO3, Venous 22.2(L) 23.0 - 29.0 mmol/L 08/17/2024 12:31 AM [facility] Base Excess, Arnaldo -2 -3 - 3 08/18/19 12:31 AM EDT [facility] O2 Sat, Arnaldo 87 Not Established % 08/17/2024 12:31 AM EDT [facility] TC02 (Calc), Arnaldo 23 Not Established mmol/L 08/17/2024 12:31 AM EDT [facility] Lactate 3.64(H) 0.40 - 2.00 mmol/L 08/17/2024 12:31 AM EDT [facility] Hemoglobin 7.1(L) 12.0 - 16.0 gm/dL 08/17/2024 12:31 AM EDT [facility] POC Hematocrit 21(L) 36 - 48 % 08/17/2024 12:31 AM EDT [facility] Sample Type ARNALDO 08/17/2024 12:31 AM EDT [facility] Performed on SEE BELOW 08/17/2024 12:31 AM EDT [facility] Comment: Performed on POC Sample Type: Venous Critical action: Notify physician Critical notify: beata Read back: Yes Notify date: 17-Aug-24 Notify time: 00:34:16 08/17/2024 12:3 1 AM EDT 08/17/2024 12:48 AM EDT us Unknown Provider Result POINT OF CARE TEST ORDER MEGAN Final Result [facility] [address] [facility] [place] [address], [facility] [phone] * CTA CHEST W WO CONTRAST PE Eval (08/16/2024 11:26 PM EDT) Anatomical Region Laterality Modality Chest, Vascular Computed Tomogra phy 08/17/2024 12:0 8 AM EDT Impressions 08/17/2024 12:17 AM EDT Significant motion artifact degrades evaluation. Within the limits of confines: A 4.7 cm cavitating mass within the right upper lobe, concerning for a primary lung malignancy, such as squamous cell lung cancer. Multifocal pneumonia within the left lung, necrotizing pneumonia within the left lower lobe. Fluid overload with pulmonary edema, large right and moderate left pleural effusion. Atelectasis within the right mid lobe, lingula and bilateral lower lobes. No pulmonary emboli. Narrative 08/17/2024 12:17 AM EDT EXAMINATION: CTA OF THE CHEST WITH AND WITHOUT CONTRAST 08/16/2024 11:16 pm TECHNIQUE: CTA of the chest was performed before and after the administration of intravenous contrast. Multiplanar reformatted images are provided for review. MIP images are provided for review. Automated exposure control, iterative reconstruction, and/or weight based adjustment of the mA/kV was utilized to reduce the radiation dose to as low as reasonably achievable. COMPARISON: None. HISTORY: ORDERING SYSTEM PROVIDED HISTORY: PE TECHNOLOGIST PROVIDED HISTORY: Reason for exam:->PE Decision Support Exception - unselect if not a suspected or confirmed emergency medical condition->Emergency Medical Condition (MA) What reading provider will be dictating this exam?->CRC FINDINGS: Lower neck: Unremarkable. Heart: Moderate cardiomegaly with multichamber enlargement. Severe mitral annular calcification. 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 Coronary artery: Severe coronary artery calcifications. Aorta: Moderate aortic valve calcification. Pulmonary artery: No pulmonary emboli. Enlarged main pulmonary artery measuring 3.6 cm, suggestive mild pulmonary hypertension. Pericardium and mediastinal soft tissue: Unremarkable. Lymph nodes: Unremarkable. Esophagus: Unremarkable. Airways and lungs: A large thick walled cavitary lesion within the medial aspect of the right upper lobe measuring 4.3 x 4.2 x 4.7 cm with spiculated margin abutting the pleura and mediastinum, concerning for a primary lung malignancy, such as squamous cell lung cancer. Mild centrilobular emphysema. Patchy ground-glass opacity and nodularity within the dependent left upper lobe, suggestive of endobronchial spread of infectious process. Atelectasis and pneumonia within the lingula and right lower lobe with central necrosis within necrosis of the dependent left left lower lobe. Patchy ground-glass opacity and mild interlobular septal thickening in both lungs, suggestive pulmonary edema. Pleura: Large right and moderate left pleural effusion. Subsegmental atelectasis within the right middle lobe and right lower lobe. Upper abdomen: Unremarkable. Soft Tissues/Bones: No aggressive osseous lesions.No acute fracture or malalignment.Mild compression deformity at superior endplate of T4 and T12 with sclerotic appearance, most likely chronic. Procedure Note Morgan Bates MD - 08/17/2024 EXAMINATION: CTA OF THE CHEST WITH AND WITHOUT CONTRAST 08/16/2024 11:16 pm TECHNIQUE: CTA of the chest was performed before and after the administration of intravenous contrast. Multiplanar reformatted images are provided for review. MIP images are provided for review. Automated exposure control, iterative reconstruction, and/or weight based adjustment of the mA/kVwas utilized to reduce the radiation dose to as low as reasonablyachievable. COMPARISON: None. HISTORY: ORDERING SYSTEM PROVIDED HISTORY: PE TECHNOLOGIST PROVIDED HISTORY: Reason for exam:->PE Decision Support Exception - unselect if not a suspected or confirmed emergency medical condition->Emergency Medical Condition (MA) What reading provider will be dictating this exam?->CRC FINDINGS: Lower neck: Unremarkable. Heart: Moderate cardiomegaly with multichamber enlargement. Severemitral annular calcification. 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 Coronary artery: Severe coronary artery calcifications. Aorta: Moderate aortic valve calcification. Pulmonary artery: No pulmonary emboli. Enlarged main pulmonary artery measuring 3.6 cm, suggestive mild pulmonary hypertension. Pericardium and mediastinal soft tissue: Unremarkable. Lymph nodes: Unremarkable. Esophagus: Unremarkable. Airways and lungs: A large thick walled cavitary lesion within themedial aspect of the right upper lobe measuring 4.3 x 4.2 x 4.7 cm withspiculated margin abutting the pleura and mediastinum, concerning for a primarylung malignancy, such as squamous cell lung cancer. Mild centrilobularemphysema. Patchy ground-glass opacity and nodularity within the dependent leftupper lobe, suggestive of endobronchial spread of infectious process.Atelectasis and pneumonia within the lingula and right lower lobe with centralnecrosis within necrosis of the dependent left left lower lobe. Patchyground-glass opacity and mild interlobular septal thickening in both lungs,suggestive pulmonary edema. Pleura: Large right and moderate left pleural effusion. Subsegmental atelectasis within the right middle lobe and right lower lobe. Upper abdomen: Unremarkable. Soft Tissues/Bones: No aggressive osseous lesions.No acute fracture or malalignment.Mild compression deformity at superior endplate of T4 andT12 with sclerotic appearance, most likely chronic. IMPRESSION: Significant motion artifact degrades evaluation. Within the limits of confines: A 4.7 cm cavitating mass within the right upper lobe, concerning for a primary lung malignancy, such as squamous cell lung cancer. Multifocal pneumonia within the left lung, necrotizing pneumonia withinthe left lower lobe. Fluid overload with pulmonary edema, large right and moderate leftpleural effusion. Atelectasis within the right mid lobe, lingula and bilateral lowerlobes. No pulmonary emboli. us Mariano S Dumont DO IMG CT ORDERABLES Final Result * Procalcitonin (08/16/2024 10:38 PM EDT) Procalcitonin 0.06 0.00 - 0.15 ng/mL 08/17/2024 1:38 PM EDT [facility] Comment: Suspected Sepsis: Low likelihood of sepsis <.50 ng/mL Increased likelihood of sepsis 0.50-2.00 ng/mL Antibiotics encouraged High risk of sepsis/shock >2.00 ng/mL Antibiotics strongly encouraged Suspected Lower Respiratory Tract Infections: Low likelihood of bacterial infection <0.24 ng/mL Increased likelihood of bacterial infection >0.24 ng/mL Antibiotics encouraged With successful antibiotic therapy, PCT levels should decrease rapidly. (Half-life of 24 to 36 hours.) Procalcitonin values from samples collected within the first 6 hours of systemic infection may still be low. Retesting may be indicated. Values from day 1 and day 4 can be entered into the Change in Procalcitonin Calculator to determine the patient's Mortality Risk Prognosis (www.tmxpbi-aho-ihsqguibvk.com) In healthy neonates, plasma Procalcitonin (PCT) concentrations increase gradually after , reaching peak values at about 24 hours of age then decrease to normal values below 0.5 ng/mL by 48-72 hours of age. Blood BLOOD SPECIMEN / Unknown 08/16/2024 10:38 PM EDT 08/17/2024 1:40 PM EDT us Mariano S Dumont DO CHEMISTRY ORDERABLES Final Resu lt [facility] [address] [place] [address], [facility] [phone] [facility] [address] [place] [address], [facility] [phone] * (ABNORMAL) D-Dimer, Quantitative (08/16/2024 10:38 PM EDT) D-Dimer, Quant 1.00(HH) 0.00 - 0.50 mg/L FEU 08/16/2024 10:02 PM EDT [facility] Comment:VTE (DVT or PE) cut- off = 0.50 mg/L FEU Blood BLOOD SPECIMEN / Unknown 08/16/2024 10:38 PM EDT 08/16/2024 10:38 PM EDT Narrative [facility] - 08/16/2024 10:58 PM EDT CALL Garg LOER tel. [phone], Coag results called to and read back by kailee kaplan rn, 08/16/2024 22:58, by COOAN us Mariano S Dumont DO HEMATOLOGY ORDERABLES Final Res ult [facility] [address] [place] [id number], [facility] [phone] * Magnesium (08/16/2024 10:38 PM EDT) Magnesium 2.4 1.7 - 2.4 mg/dL 08/16/2024 11:02 PM EDT [facility] Blood BLOOD SPECIMEN / Unknown 08/16/2024 10:38 PM EDT 08/16/2024 10:38 PM EDT us Mariano S Dumont DO CHEMISTRY ORDERABLES Final Resu lt Performing Organization Address City/[facility]/ZIP Co de Phone Number [facility] [address] [place] [address], [facility] [phone] * DME Order for (Specify) as OP (08/12/2024 12:29 PM EDT) Only the most recent of2 resultswithin the time period is included. Heber Trent SAMPLE CASE PORTER - CHEMICAL RESEARCH WORKER GENERAL EQUIPMENT ORDE RABLES Final Result * Amb External Referral To Primary Care (08/11/2024 12:00 PM EDT) Heber Rendonandrea SAMPLE CASE PORTER - CHEMICAL RESEARCH WORKER [facility] AMB EXT REFERRALS Final Result from Last 3 Months Insurance MEDICARE Advance Directives Documents on File Type Date Recorded Patient Director Targeted Marketing Expl anation ACP-Do Not Resuscitate 08/20/2024 4:11 PM ACP-Do Not Resuscitate 08/17/2024 1:17 AM * DNR-CC (Latest Code Status on File) Date Activated Date Inactivated Comments 09/12/2024 11:00 AM 09/18/2024 5:01 PM * DNR-CC Date Activated Date Inactivated Comments 08/17/2024 1:27 AM 08/19/2024 3:48 PM * DNR-CC Date Activated Date Inactivated Comments 08/17/2024 1:02 AM 08/17/2024 1:27 AM * Full Code Date Activated Date Inactivated Comments 08/11/2024 11:44 AM 08/16/2024 9:57 PM Healthcare Agents on File Name Relationship Healthcare Agent [facility] Communication Kervin Newton Child Primary Decision Maker Care Teams Arc Cutter Plasma Arc Relationship Specialty Start Date End Date Connie Restrepo APRN - CHEMICAL RESEARCH WORKER [address] [place] [address] PCP - General Internal Medicine 07/29/24
--- OUTSIDE RECORDS SUMMARY | 2024-10-10 19:50 | XMS_ITS | Encounter Summary ---
Author Organization [facility] Address [address] [facility] [address], [address] [place] [address] Care Team Providers Care Technician Plant And Maintenance Name Role Phone Connie Restrepo APRN - DOUBLE CUT OFF SAW OPERATOR Primary Care P rovider Encounter Details Date Type Department Care Team (Late st Contact Info) Description 08/04/2024 Telephone [facility] [address] [place] [address] Connie Restrepo APRN - DOUBLE CUT OFF SAW OPERATOR [address] [place] [address] Social History Tobacco Use Types Packs/Day Years Used Date Smoking Tobacco: Former Cigarettes 1.5 63.2 0 02/05/1959 - 05/06/2022 Smokeless Tobacco: Never Alcohol Use Standard Drinks/Week Comments Never 0 (1 standard drink = 0.6 oz pur e alcohol) [facility] Utilities Answer Date Recorded In the past 12 months has e electric, gas, oil, or water company threatened to shut off services in your home? No 07/29/2024 PHQ-2 Answer Date Recorded PHQ-9 Total Score 0 07/29/2024 Hunger Vital Sign Answer Date Recorded Within the past 12 months, y ou worried that your food would run out before you got the money to buy more. Never true 07/30/19 25 Within the past 12 months, t he food you bought just didn't last and you didn't have money to get more. Never true 07/29/2024 PRAPARE - Transportation Answer Date Re corded In the past 12 months, has l ack of transportation kept you from medical appointments or from getting medications? No 07/07 In the past 12 months, has l ack of transportation kept you from meetings, work, or from getting things needed for daily living? No 07/29/2024 Housing Stability Vital Sign Answer Chidi e Recorded In the last 12 months, was t here a time when you were not able to pay the mortgage or rent on time? No 07/29/2024 In the past 12 months, how m any times have you moved where you were living? 0 07/29/2024 At any time in the past 12 m onths, were you homeless or living in a senior care (including now)? No 07/29/2024 Food Insecurity Answer Date Recorded Within the past 12 months, y ou worried that your food would run out before you got the money to buy more. 1 07/29/2024 Within the past 12 months, t he food you bought just didn't last and you didn't have money to get more. 1 07/29/2024 Comments No Sex and Gender Information Value Date Recorded Sex Assigned at Not on file Legal Sex Female 10:35 AM EDT Gender Identity Not on file Sexual Orientation Not on file documented as of this encounter Plan of Treatment Not on file documented as of this encounter Visit Diagnoses Not on filedocumented in this encounter Additional Health Concerns Assessment Noted Time A fall risk assessment has been complete d for the patient 07/29/2024 11:13 AM EDT documented as of this encounter Care Teams Technician Plant And Maintenance Relationship Specialty Start Date End Date Connie Restrepo, CHEMICAL ANALYTICAL SAMPLER - DOUBLE CUT OFF SAW OPERATOR [address] [place] [address] PCP - General Internal Medicine 07/29/24 documented as of this encounter
[2024-10-10 20:06] LABS: INR 1.13; Prothrombin Time 11.8 sec (9.0-11.6)
--- OUTSIDE RECORDS SUMMARY | 2024-11-16 20:00 | XMS_ITS | Clinical Summary ---
Author Organization Unknown Care Team Providers Care Sand Filler Name Role Phone VIKTOR LANDRY Unavailable Unavailable [facility] CUSTOMER SUPPORT, ADMIN Unavailable [place] evelia CLINE RCO, BEATRIZ Unavailable Unavailable [employer], ACO, MARGARITA Unavailable Unavamartha BEYER RN, DONYA Unavailable Unavailable LIVIER RN-DCS, MARYAN Unavailable Unavailable SARAH IVERSON RCO, CARMENCITA Unavailable Unavailab adriana DIAZ BOC, RENETTA Unavailable Unavailable [facility] Unavailable Unavailable PITER RN-DCS, ALLISON Unavailable Unavailable INGRID IVERSON CM, SKIP Unavailable Unavaila ble GANDERA, SONG Unavailable Unavailable [facility] RVP, JL Unavailable Unava ilable NICKOLAS RN-IPU, JOSEPHINE Unavailable Unavailabl juaquin BREWER AIDE, STEFANIA Unavailable Unavailable MEENAKSHI RN- IPU, PAMELA Unavailable Unavailabl juaquin MAHER RN, ISA Unavailable Unavailable DARIEN AIDELEN Gracia Unavailable Unavailable TOI RNLAUREN Unavailable Unavailable MONICA CHENG Unavailable Unavailable GEENA RAE COURTNEY Unavailable Unavail able KAREN RN - IPU, LIZA Unavailable Unavaila asmita PATRICK RN, NOE Unavailable Unavailable BRIDGET BALDWIN RN Unavailable Unavailable ROBERTA MATTHEW Unavailable Unavailab adriana BROWNING RNYENNY Unavailable Unavailable VICKEY RNNOE Unavailable Unavailable ISRAEL RN-DCS, NOE Unavailable Unavailable CANDELARIO RUIZ Unavailable Unavailjhonny FAUST RN, SHAKA Unavailable Unavailable MEG RNLIA Unavailable Unavailable BRIAN ARTEAGA-VCBEATRIZ Unavailable Unavailable CLARENCE RNRODGER Unavailable Unavailable YULI BEREAVEMENT COORD, BRIDGET Unavailable Unavailable BRETT CAMPBELL RN Unavailable Unavailable STACY HENRY RN Unavailable Unavailable MARIANO RN - IPU, CASSIDI Unavailable Unavai charo NEGRO RN - IPU, LORENZO Unavailable Unavailab adriana FRANCIS SW, DERIC Unavailable Unavailable RYAN RN, BEATRIZ Unavailable Unavailable TYREE SW, KIRA Unavailable Unavaila asmita ORO RN - IPU, TERRI Unavailable Unavail able ELEUTERIO RN, ANGIE Unavailable Unavailable SOHA AIDE, SARA Unavailable Unavailable IGOR RN, MORENO Unavailable Unavailjhonny GONZALEZ COLD ROLLING MACHINE SETTER, DEEPTI Unavailable Unavailable GLORIA RN, KATY Unavailable Unavailable DARWIN RN-DCS, CELESTINA Unavailable Unavailable SINA RN, JILLIAN Unavailable Unavailable LYNN RN, CHRISTELLE Unavailable Unavailable AMY RN-DCS, JESSICA Unavailable Unavail able CHLOÉ RN, CHARMAINE Unavailable Unavailable GELY RN, SHAWN Unavailable Unavailable MISTI RN, SHUBHAM Unavailable Unavailable NOHELIA AIDE, SONG Unavailable Unavailable RENEE RN, RAYNA Unavailable Unavailable JENNIANZER AIDE, JEFFY Unavailable Unavailable FELIPE RCO/DQO, ABIMAEL Unavailable Unaangela MONK RN-DCS, YESIKA Unavailable Unavailjhonny CLEMENTS RN-DCS, LEXY Unavailable Unavailable FRIDA HUGHES RN, BRIDGET Unavailable Unavai charo [employer] MESSAGE [employer] DELIVERY SERVICE PRICER, ALFRED Unavailable Unavailjhonny WINTER BOC, CHARMAINE Unavailable Unavailable PRICILA IVERSON, ABEL Unavailable Unavailable Payers Payer Name Policy Type Policy Number Effective Date Expira tion Date MEDICARE PGBA [id number] Problems Condition Name Condition Details Condition Category Status Onset Date Resolution Date Last Treatment Date Treating Clinician Comments MALIGNANT NEOPLASM OF UPPER LOBE, RIGHT BRONCHUS OR LUNG Active 09-19 00:00: 00 GANGRENE AND NECROSIS OF LUNG Active 09-19 00:00: 00 ACUTE AND CHRONIC RESPIRATORY FAILURE WITH HYPOXIA Active 09-19 00:00: 00 CHRONIC OBSTRUCTIVE PULMONARY DISEASE, UNSPECIFIED Active 09-19 00:00: 00 OTHER MEGALOBLASTI C ANEMIAS, 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 Ordering Clinician Indication Dosage Frequency Signature (SIG) Comments Components Colace 100 mg capsule 08-19 00:00: 00 09-08 23:59 :00 No [id number] CONSTIPATIO N 1 capsule DAILY 1 capsule DAILY (route: oral) Med Classific ation: Gastroint estinal Therapy Agents folic acid 1 mg tablet 08-19 00:00: 00 09-08 23:59 :00 No [id number] VIT 1 tablet DAILY 1 tablet DAILY (route: oral) Med Classific ation: Electroly te Balance-N utritiona l Products furosemide 20 mg tablet 08-19 00:00: 00 09-05 23:59 :00 No [id number] DIURETIC 1 tablet DAILY 1 tablet DAILY (route: oral) Med Classific ation: Cardiovas cular Therapy Agents ipratropium 0.5 mg-albutero l 3 mg (2.5 mg base)/3 mL nebulizatio n soln 08-19 00:00: 09-19 00:00 :00 No [id number] SOB Per instruc tions EVERY 6 HOURS NEEDED Per instructio ns EVERY 6 HOURS NEEDED (route: inhalation ) Med Classific ation: Respirato ry Therapy Agents levofloxaci n 500 mg tablet 08-19 00:00: 00 08-26 23:59 :00 No [id number] ATB 1 tablet DAILY 1 tablet DAILY (route: oral) Med Classific ation: Anti-Infe ctive Agents metoprolol tartrate 25 mg tablet 08-19 00:00: 00 09-11 23:59 :00 No [id number] HR CONTROL 0.5 mg DAILY 0.5 mg DAILY (route: oral) Med Classific ation: Cardiovas cular Therapy Agents mirtazapine 15 mg tablet 08-19 00:00: 00 09-19 00:00 :00 No [id number] SLEEP 0.5 tablet AT BEDTIME 0.5 tablet AT BEDTIME (route: oral) Med Classific ation: Central Nervous System Agents Mucinex 1,200 mg tablet, extended release 08-19 00:00: 00 09-19 00:00 :00 No [id number] MUCOUS 1 tablet 2 TIMES DAILY NEEDED 1 tablet 2 TIMES DAILY NEEDED (route: oral) Med Classific ation: Respirato ry Therapy Agents potassium chloride ER 10 mEq tablet,exte nded release 08-19 00:00: 00 09-05 23:59 :00 No [id number] GIVE WITH LASIX 1 tablet 2 TIMES DAILY 1 tablet 2 TIMES DAILY (route: oral) Med Classific ation: Electroly te Balance-N utritiona l Products prednisone 20 mg tablet 08-19 00:00: 00 09-11 23:59 :00 No [id number] STEROID 1 tablet 2 TIMES DAILY 1 tablet 2 TIMES DAILY (route: oral) Med Classific ation: Endocrine Synthroid 88 mcg tablet 08-19 00:00: 00 09-19 00:00 :00 No [id number] SYNTHROID 1 tablet DAILY 1 tablet DAILY (route: oral) Med Classific ation: Endocrine trazodone 50 mg tablet 08-19 00:00: 00 09-19 00:00 :00 No [id number] NEEDED FOR SLEEP 1 tablet AT BEDTIME 1 tablet AT BEDTIME (route: oral) Med Classific ation: Central Nervous System Agents Tylenol 325 mg tablet 08-19 00:00: 00 09-19 00:00 :00 No [id number] NEEDED FOR MILD PAIN OR FEVER 2 tablet EVERY 8 HOURS NEEDED 2 tablet EVERY 8 HOURS NEEDED (route: oral) Med Classific ation: Analgesic , Anti-infl ammatory or Antipyret ic warfarin 1 mg tablet 08-19 00:00: 00 08-26 23:59 :00 No [id number] ANTICOAGULA TION 1 tablet DAILY 1 tablet DAILY (route: oral) Med Classific ation: Hematolog ical Agents warfarin 2 mg tablet 08-26 00:00: 00 09-05 23:59 :00 No [id number] DVT PROPHYLAXIS 1 tablet DAILY 1 tablet DAILY (route: oral) Med Classific ation: Hematolog ical Agents oxygen gas for inhalation 08-27 00:00: 09-19 00:00 :00 No [id number] COPD 4 Liter O2 - CONTINUOUS 4 Liter O2 - CONTINUOUS (route: inhalation ) Med Classific ation: Medical Supplies and Durable Medical Equipment (DME) Airsupra 90 mcg-80 mcg/actuati on HFA aerosol inhaler 09-03 00:00: 00 09-19 00:00 :00 No [id number] SHORTNESS OF BREATH OR WHEEZING 2 puff EVERY 4 HOURS NEEDED 2 puff EVERY 4 HOURS NEEDED (route: inhalation ) Med Classific ation: Respirato ry Therapy Agents Ativan 0.5 mg tablet 09-03 00:00: 00 09-11 23:59 :00 No [id number] ANXIETY, RESTLESSNES S, OR SHORTNESS OF BREATH 1 tablet EVERY 6 HOURS NEEDED 1 tablet EVERY 6 HOURS NEEDED (route: oral) Med Classific ation: Central Nervous System Agents furosemide 20 mg tablet 09-05 00:00: 00 09-10 23:59 :00 No [id number] CHF 3 tablet DAILY 3 tablet DAILY (route: oral) Med Classific ation: Cardiovas cular Therapy Agents furosemide 20 mg tablet 09-11 00:00: 00 09-11 23:59 :00 No [id number] CHF 1.5 tablet DAILY 1.5 tablet DAILY (route: oral) Med Classific ation: Cardiovas cular Therapy Agents potassium chloride ER 10 mEq tablet,exte nded release 09-05 00:00: 00 09-10 23:59 :00 No [id number] DIURETIC USE 2 tablet 2 TIMES DAILY 2 tablet 2 TIMES DAILY (route: oral) Med Classific ation: Electroly te Balance-N utritiona l Products potassium chloride ER 10 mEq tablet,exte nded release 09-11 00:00: 00 09-19 00:00 :00 No [id number] DIURETIC USE 1 tablet 2 TIMES DAILY 1 tablet 2 TIMES DAILY (route: oral) Med Classific ation: Electroly te Balance-N utritiona l Products warfarin 1 mg tablet 09-05 00:00: 00 09-19 00:00 :00 No [id number] MECHANICAL VALVE Per instruc tions DAILY Per instructio ns DAILY (route: oral) Med Classific ation: Hematolog ical Agents Miralax 17 gram/dose oral powder 09-08 00:00: 00 09-19 00:00 :00 No [id number] CONSTIPATIO N 17 gram DAILY 17 gram DAILY (route: oral) Med Classific ation: Gastroint estinal Therapy Agents Senna-Time S 8.6 mg-50 mg tablet 09-08 00:00: 00 09-19 00:00 :00 No [id number] CONSTIPATIO N 2 tablet DAILY 2 tablet DAILY (route: oral) Med Classific ation: Gastroint estinal Therapy Agents Senna-Time S 8.6 mg-50 mg tablet 09-08 00:00: 00 09-19 00:00 :00 No [id number] CONSTIPATIO N 2 tablet DAILY NEEDED 2 tablet DAILY NEEDED (route: oral) Med Classific ation: Gastroint estinal Therapy Agents Ativan 0.5 mg tablet 09-11 00:00: 00 09-19 00:00 :00 No [id number] ANXIETY OR SHORTNESS OF BREATH 0.5 tablet EVERY 6 HOURS NEEDED 0.5 tablet EVERY 6 HOURS NEEDED (route: oral) Med Classific ation: Central Nervous System Agents furosemide 20 mg tablet 09-11 00:00: 09-19 00:00 :00 No [id number] HEART DISEASE 2 tablet DAILY 2 tablet DAILY (route: oral) Med Classific ation: Cardiovas cular Therapy Agents metoprolol tartrate 25 mg tablet 09-11 00:00: 00 09-19 00:00 :00 No [id number] HEART DISEASE 0.5 tablet DAILY 0.5 tablet DAILY (route: oral) Med Classific ation: Cardiovas cular Therapy Agents prednisone 20 mg tablet 09-11 00:00: 00 09-19 00:00 :00 No [id number] LUNG DISEASE 1 tablet DAILY 1 tablet DAILY (route: oral) Med Classific ation: Endocrine acetaminoph en 325 mg tablet 09-19 00:00: 00 Yes [id number] FOR MILD PAIN OR FEVER 2 tablet EVERY 4 HOURS NEEDED 2 tablet EVERY 4 HOURS NEEDED (route: oral) Med Classific ation: Analgesic , Anti-infl ammatory or Antipyret ic Airsupra 90 mcg-80 mcg/actuati on HFA aerosol inhaler 09-19 00:00: 00 Yes [id number] WHEEZING OR SHORTNESS OF BREATH 2 puff EVERY 4 HOURS NEEDED 2 puff EVERY 4 HOURS NEEDED (route: inhalation ) Med Classific ation: Respirato ry Therapy Agents furosemide 40 mg tablet 09-19 00:00: 00 Yes [id number] EDEMA 40 mg DAILY 40 mg DAILY (route: oral) Med Classific ation: Cardiovas cular Therapy Agents albuterol sulfate 2.5 mg/3 mL (0.083 %) solution for nebulizatio n 09-20 00:00: 00 Yes [id number] for wheezing or shortness of breath 3 mL EVERY 6 HOURS NEEDED 3 mL EVERY 6 HOURS NEEDED (route: inhalation ) Med Classific ation: Respirato ry Therapy Agents aluminum-ma g hydroxide-s imethicone 200 mg-200 mg-20 mg/5 mL oral susp 09-20 00:00: 00 Yes [id number] for gi distress 30 mL EVERY 4 HOURS NEEDED 30 mL EVERY 4 HOURS NEEDED (route: oral) Med Classific ation: Gastroint estinal Therapy Agents bisacodyl 10 mg rectal suppository 09-20 00:00: 00 Yes [id number] for constipatio n 1 supposi tory, rectal DAILY NEEDED 1 suppositor y, rectal DAILY NEEDED (route: rectal) Med Classific ation: Gastroint estinal Therapy Agents doxycycline hyclate 100 mg tablet 09-20 00:00: 00 Yes [id number] infection 1 tablet 2 TIMES DAILY 1 tablet 2 TIMES DAILY (route: oral) Med Classific ation: Anti-Infe ctive Agents Fleet Enema 19 gram-7 gram/118 mL 09-20 00:00: 00 Yes [id number] constipatio n 118 mL DIRECTED 118 mL DIRECTED (route: rectal) Med Classific ation: Gastroint estinal Therapy Agents folic acid 1 mg tablet 09-20 00:00: 00 Yes [id number] health maintenance 1 tablet DAILY 1 tablet DAILY (route: oral) Med Classific ation: Electroly te Balance-N utritiona l Products guaifenesin ER 600 mg tablet, extended release 12 hr 09-20 00:00: 00 Yes [id number] shortness of breath 2 tablet 2 TIMES DAILY NEEDED 2 tablet 2 TIMES DAILY NEEDED (route: oral) Med Classific ation: Respirato ry Therapy Agents guaifenesin 100 mg/5 mL oral liquid 09-20 00:00: 00 Yes [id number] for cough, congestion 10 mL EVERY 4 HOURS NEEDED 10 mL EVERY 4 HOURS NEEDED (route: oral) Med Classific ation: Respirato ry Therapy Agents ipratropium 0.5 mg-albutero l 3 mg (2.5 mg base)/3 mL nebulizatio n soln 09-20 00:00: 00 Yes [id number] for shortness of breath 3 mL EVERY 6 HOURS NEEDED 3 mL EVERY 6 HOURS NEEDED (route: inhalation ) Med Classific ation: Respirato ry Therapy Agents levothyroxi ne 88 mcg tablet 09-20 00:00: 00 Yes [id number] thyroid disease 88 mcg DAILY 88 mcg DAILY (route: oral) Med Classific ation: Endocrine metoprolol tartrate 25 mg tablet 09-20 00:00: 00 Yes [id number] hypertensio n 12.5 mg 2 TIMES DAILY 12.5 mg 2 TIMES DAILY (route: oral) Med Classific ation: Cardiovas cular Therapy Agents Milk of Magnesia 400 mg/5 mL oral suspension 09-20 00:00: 00 Yes [id number] constipatio n 30 mL DAILY NEEDED 30 mL DAILY NEEDED (route: oral) Med Classific ation: Gastroint estinal Therapy Agents Miralax 17 gram/dose oral powder 09-20 00:00: 00 Yes [id number] constipatio n 17 g DAILY 17 g DAILY (route: oral) Med Classific ation: Gastroint estinal Therapy Agents mirtazapine 15 mg tablet 09-20 00:00: 00 Yes [id number] appetite stimulant 7.5 mg DAILY 7.5 mg DAILY (route: oral) Med Classific ation: Central Nervous System Agents potassium chloride ER 10 mEq capsule,ext ended release 09-20 00:00: 00 Yes [id number] hypokalemia 10 mEq 2 TIMES DAILY 10 mEq 2 TIMES DAILY (route: oral) Med Classific ation: Electroly te Balance-N utritiona l Products prednisone 20 mg tablet 09-18 00:00: 00 09-28 23:59 :00 No [id number] copd exacerbatio n 20 mg 2 TIMES DAILY 20 mg 2 TIMES DAILY (route: oral) Med Classific ation: Endocrine Senna Plus 8.6 mg-50 mg tablet 09-20 00:00: 00 Yes [id number] for constipatio n 2 tablet DAILY NEEDED 2 tablet DAILY NEEDED (route: oral) Med Classific ation: Gastroint estinal Therapy Agents trazodone 50 mg tablet 09-20 00:00: 00 Yes [id number] insomnia 50 mg AT BEDTIME 50 mg AT BEDTIME (route: oral) Med Classific ation: Central Nervous System Agents warfarin 1 mg tablet 09-20 00:00: 00 Yes [id number] afib 2 mg DIRECTED 2 mg DIRECTED (route: oral) Med Classific ation: Hematolog ical Agents warfarin 1 mg tablet 09-20 00:00: 00 Yes [id number] afib 3 mg DIRECTED 3 mg DIRECTED (route: oral) Med Classific ation: Hematolog ical Agents acetaminoph en 325 mg tablet 09-24 00:00: 00 Yes [id number] PAIN 2 tablet 3 TIMES DAILY 2 tablet 3 TIMES DAILY (route: oral) Med Classific ation: Analgesic , Anti-infl ammatory or Antipyret ic albuterol sulfate 2.5 mg/3 mL (0.083 %) solution for nebulizatio n 09-24 00:00: 00 Yes [id number] COPD 3 mL 3 TIMES DAILY 3 mL 3 TIMES DAILY (route: inhalation ) Med Classific ation: Respirato ry Therapy Agents Senna Plus 8.6 mg-50 mg tablet 09-29 00:00: 00 Yes [id number] CONSTIPATIO N 2 tablet DAILY 2 tablet DAILY (route: oral) Med Classific ation: Gastroint estinal Therapy Agents Vital Signs Vital Name Observation Time Observation Value Commen ts Temperature 2024-10-09 10:36:00.000 97.4 [degF] Temperature 2024-10-08 23:22:00.000 98.5 [degF] Temperature 2024-10-02 09:58:00.000 97.3 [degF] Temperature 2024-09-29 10:45:00.000 97.3 [degF] Temperature 2024-09-22 11:33:00.000 97.8 [degF] Temperature 2024-09-20 20:38:00.000 98.1 [degF] Temperature 2024-09-19 19:52:00.000 98.2 [degF] Pulse 2024-10-09 10:36:00.000 68 /min Pulse 2024-10-08 23:22:00.000 76 /min Pulse 2024-10-02 09:58:00.000 87 /min Pulse 2024-09-29 10:45:00.000 74 /min Pulse 2024-09-25 10:25:00.000 96 /min Pulse 2024-09-22 11:33:00.000 70 /min Pulse 2024-09-20 20:38:00.000 67 /min Pulse 2024-09-19 19:52:00.000 107 /min O2 Saturation (%) 2024-10-09 10:36:00.000 94 % O2 Saturation (%) 2024-10-08 23:22:00.000 97 % O2 Saturation (%) 2024-09-29 10:45:00.000 93 % O2 Saturation (%) 2024-09-25 10:25:00.000 94 % O2 Saturation (%) 2024-09-22 11:33:00.000 98 % O2 Saturation (%) 2024-09-20 20:38:00.000 98 % O2 Saturation (%) 2024-09-19 19:52:00.000 94 % Respirations 2024-10-09 10:36:00.000 17 /min Respirations 2024-10-08 23:22:00.000 20 /min Respirations 2024-10-02 09:58:00.000 16 /min Respirations 2024-09-29 10:45:00.000 16 /min Respirations 2024-09-25 10:25:00.000 18 /min Respirations 2024-09-22 11:33:00.000 18 /min Respirations 2024-09-20 20:38:00.000 18 /min Respirations 2024-09-19 19:52:00.000 20 /min Systolic Blood Pressure 2024-10-09 10:36:00.000 109 mm [Hg] Systolic Blood Pressure 2024-10-08 23:22:00.000 135 mm [Hg] Systolic Blood Pressure 2024-09-29 10:45:00.000 114 mm [Hg] Systolic Blood Pressure 2024-09-25 10:25:00.000 130 mm [Hg] Systolic Blood Pressure 2024-09-20 20:38:00.000 118 mm [Hg] Systolic Blood Pressure 2024-09-19 19:52:00.000 130 mm [Hg] Diastolic Blood Pressure 2024-10-09 10:36:00.000 59 mm [Hg] Diastolic Blood Pressure 2024-10-08 23:22:00.000 51 mm [Hg] Diastolic Blood Pressure 2024-09-29 10:45:00.000 48 mm [Hg] Diastolic Blood Pressure 2024-09-25 10:25:00.000 58 mm [Hg] Diastolic Blood Pressure 2024-09-20 20:38:00.000 46 mm [Hg] Diastolic Blood Pressure 2024-09-19 19:52:00.000 68 mm [Hg] Plan of Treatment Planned Activity Planned Date Details Comments Future Scheduled Test COLLABORAT E WITH THE PHYSICIAN TO CLARIFY CURRENT MEDICATION LIST NEEDED. RECEIVE MEDICATION ORDERS TO ENSURE THE ACCURACY OF THE MEDICATION LIST. PROVIDE MEDICATION LIST AND TRAINING OF MEDICATIONS VIA EDUCATION MONOGRAPH TO THE PATIENT AND OR CAREGIVER. ASSESS PATIENT AND CAREGIVER ABILITY TO ADMINISTER MEDICATIONS AT EACH VISIT ASSESS PATIENT MEDICATION SUPPLY TO ENSURE AT LEAST A 7 DAY SUPPLY OF MEDICATIONS IS AVAILABLE OR PER MEDICATION AGREEMENT IF IN PLACE. [code = COLLABORATE WITH THE PHYSICIAN TO CLARIFY CURRENT MEDICATION LIST NEEDED. RECEIVE MEDICATION ORDERS TO ENSURE THE ACCURACY OF THE MEDICATION LIST. PROVIDE MEDICATION LIST AND TRAINING OF MEDICATIONS VIA EDUCATION MONOGRAPH TO THE PATIENT AND OR CAREGIVER. ASSESS PATIENT AND CAREGIVER ABILITY TO ADMINISTER MEDICATIONS AT EACH VISIT ASSESS PATIENT MEDICATION SUPPLY TO ENSURE AT LEAST A 7 DAY SUPPLY OF MEDICATIONS IS AVAILABLE OR PER MEDICATION AGREEMENT IF IN PLACE.] Goal Provider Goal - MEDICATION INVENTORY WILL BE COMPLETED FOR ALL MEDICATIONS THAT THE PATIENT IS CURRENTLY TAKING FOR SAFETY AND AUTONOMY EVIDENCED BY PERFORMING A MEDICATION RECONCILIATION ON EACH VISIT Progress Notes Progress Notes <paragraph>[Visit Date: 2024 by SONG BAEZ]:</paragraph><paragraph>ADL'S COMPLETED, COMPANIONSHIP PROVIDED.</paragraph> <paragraph>[Visit Date: 2024 by ALFRED ALLEN LPN]:</paragraph><paragraph>0 C/O PAIN OR DIACOMFORT AT THIS TIME. 0 CONCERNA REPORTED BY STAFF.</paragraph> <paragraph>[Visit Date: 2024 by SONG BAEZ]:</paragraph><paragraph>ADL'S COMPLETED, COMPANIONSHIP PROVIDED.</paragraph> <paragraph>[Visit Date: 2024 by SHUBHAM CHAPPELL RN]:</paragraph><paragraph>ROUTINE VISIT COMPLETED. PT DENIES PAIN. MOSTLY SLEPT THROUGH VISIT. UPDATED SISTER BRANDON AND FACILITY NURSE JOSHUA AFTER VISIT.</paragraph> Encounters Start Date/Time End Date/Time Encounter Type Admission Type Attending [facility] Care Facility Care Department Encounter ID Discharge Date Discharge Status Discharge Condition Discharge Reason Percent Goals Met 2024-09-19 00:00:00 2024-11-17 00:00:00 Outpatient SHUBHAM MARTINS [facility] [id number]
== END 2024-10-10 19:44 | disposition home or self-care (01) ==
LOC: LAB 19:43
PROVIDERS: PCP Internal Medicine; Visit Provider Internal Medicine
DX: R53.1 Weakness (principal); Z79.01 Long term (current) use of anticoagulants
CPT/HCPCS: 36415; 85610